=== PATIENT | female | born 1985 | race Two or more races ===

== ENCOUNTER 2019-11-09 16:32 | Emergency (ER) | payer MEDICAID ==
[~2019-11-09] VITALS: Ht 162.6 cm; Wt 104.0 kg
[2019-11-09] MEDS ORDERED: ACETAMINOPHEN 325MG TABLET PO ONE (17:45)
[2019-11-09 21:13] LABS: CLARITY URINE TURBID (CLEAR); COLOR URINE DARK YELLOW (YELLOW); KETONES URINE TRACE (NEGATIVE); LEUKOCYTE ESTERASE URINE 2+ (NEGATIVE); NITRITE URINE POSITIVE (NEGATIVE); OCCULT BLOOD URINE 3+ (NEGATIVE); PH URINE 5.5 (4.5-8.0); PROTEIN URINE 1+ (NEGATIVE); SPECIFIC GRAVITY URINE 1.028 (1.005-1.030)
[2019-11-09] MEDS ORDERED: CEPHALEXIN 250MG CAPSULE PO ONE (21:30)
[2019-11-09] MEDS ORDERED: IBUPROFEN 600MG TABLET PO ONE (21:30)
[2019-11-09 21:40] VITALS: BP 122/74
== END 2019-11-09 21:41 | disposition home or self-care (01) ==
LOC: ER 17:11
DX: U07.1 COVID-19 (principal); N39.0 Urinary tract infection, site not specified; D64.9 Anemia, unspecified; Z90.49 Acquired absence of other specified parts of digestive tract; Z98.890 Other specified postprocedural states; Z96.659 Presence of unspecified artificial knee joint
CPT/HCPCS: 71045; 81003; 81025; 93005; 99285

== ENCOUNTER 2021-11-24 17:22 | Emergency (ER) | payer MEDICAID ==
[~2021-11-24] VITALS: Ht 165.1 cm; Wt 109.0 kg
[2021-11-24 17:23] VITALS: BP 169/83
== END 2021-11-24 21:51 | disposition left against medical advice (07) ==
LOC: ER 17:22
DX: Z53.21 Procedure and treatment not carried out due to patient leaving prior to being seen by health care provider (principal)